=== PATIENT | male | born 1995 | race Two or more races ===

== ENCOUNTER 2024-02-29 12:07 | Emergency (ER) | payer OTHER ==
[~2024-02-29] VITALS: Ht 177.8 cm; Wt 78.0 kg
[2024-02-29 12:11] VITALS: O2SAT 99
[2024-02-29] MEDS: ACETAMINOPHEN 325MG TABLET PO STA (13:21)
[2024-02-29] MEDS ORDERED: BO1 TP (14:05)
[2024-02-29] MEDS ORDERED: NAPR-681 PO (14:05)
[2024-02-29] MEDS: TETANUS, DIPHTHERIA, PERTUSSIS VAC/PF 0.5ML (>10YR OLD) IM ONE (14:23)
[2024-02-29 14:29] VITALS: BP 117/75; PULSE 60; RESP 16; TEMP 97.9
== END 2024-02-29 14:25 | disposition home or self-care (01) ==
LOC: ER 12:07
DX: S00.93XA Contusion of unspecified part of head, initial encounter (principal); W22.8XXA Striking against or struck by other objects, initial encounter; X58.XXXA Exposure to other specified factors, initial encounter; Y93.89 Activity, other specified; Y92.89 Other specified places as the place of occurrence of the external cause; Y99.8 Other external cause status
CPT/HCPCS: 90471; 90715; 99283